=== PATIENT | male | born 1970 | race Caucasian/White ===

== ENCOUNTER → 2016-06-12 | Outpatient (CLI) | payer BC ==
--- NOTE | 2016-06-12 13:19 | KCIC ---
Examination: CT maxillofacial bones without contrast HISTORY History of headaches, eye strain prior. COMPARISON None available TECHNIQUE Axial CT images of the maxillofacial bones were performed without contrast. Coronal sagittal reformats were performed. Exposure: One or more of the following dose reduction technique were utilized for this examination: 1. Automated exposure control. 2.Adjustment of MA and /or KV according to patient size. 3. Use of iterative reconstruction technique. Findings : The frontal sinuses, left sphenoid sinus are unopacified. There is mild mucosal thickening identified in the bilateral ethmoidal sinuses. There is moderate mucosal thickening identified in the bilateral maxillary sinuses with some narrowing of the bilateral ostiomeatal complexes. The mastoid air cells are clear. Mild mucosal thickening in the pain in the right sphenoid sinus. The nasal septum is in the midline. The bilateral zygomatic arches, pterygoid plates are intact. The bilateral orbital globes appear intact. The retro-orbital fat is maintained. The orbital reeves appear intact. IMPRESSION Moderate mucosal thickening identified in the bilateral maxillary sinus with some narrowing of the bilateral ostiomeatal complex . Mild mucosal thickening in the bilateral ethmoidal sinus,right sphenoid sinus likely sinus disease. Electronically signed by: Jamaal Workman (Jun 12, 2016 13:18:20)
== END | disposition home or self-care (01) ==
LOC: KCIC CT 12:50
PROVIDERS: ATTEND Internal Medicine
DX: J34.89 Other specified disorders of nose and nasal sinuses (principal); H53.10 Unspecified subjective visual disturbances
CPT/HCPCS: 70486